=== PATIENT | male | born 1975 | race Caucasian/White ===

== ENCOUNTER → 2019-07-23 | Day surgery (SDC) | payer OTHER ==
[~2019-07-23] MED LIST: Buffered Lidocaine 1% SYRIN* 1 ML/SYRINGE INTRADERM ONE; Bupivacaine 0.5%* 50 ML MDV VIAL ONE; Dexamethasone IV* 4 MG/ML 1 ML (4 MG) IV SLOW PU ONE; Dexamethasone IV* 4 MG/ML 1 ML (4 MG) ONE; DiMENhydriNATE IV* 50 MG/ML VIAL IV PUSH PRN; Famotidine IV* 10 MG/ML 2 ML (20 mg) IV ONE; Famotidine IV* 10 MG/ML 2 ML (20 mg) ONE; HYDROcodone/ACETAMIN 5-325 MG* 1 TAB ONE; HYDROmorphone INJ1* 1 MG/ML SYRINGE IV PRN; KETAMINE HCL* 50 MG/ML 10 ML VIAL ONE; Ketorolac INJ* 30 MG/ML 1 ML VIAL ONE; Lactated Ringers 1000 ML Bag* 1,000 ML IV SCH; Midazolam* 1 MG/ML 2 ML VIAL (2 MG) ONE; Naloxone* 0.4 MG/ML 1 ML VIAL IV PRN; Ondansetron INJ* 2 MG/ML VIAL ONE; Propofol* 10 MG/ML 20 ML BTL ONE; ceFAZolin 2 GM PREMIX in ORs 2 GM/50 ML BAG ONE; ceFAZolin 2 GM in NS PREMIX(*) 0 GM/0 ML BAG IVPB ONE; fentaNYL* 50 MCG/ML 2 ML VIAL (100 MCG VIAL) IV PRN; fentaNYL* 50 MCG/ML 2 ML VIAL (100 MCG VIAL) ONE
[2019-07-23 13:51] VITALS: BP 154/93
--- NOTE | 2019-07-23 22:40 | OP ---
DATE OF OPERATION: 07/23/19 - [facility] DATE OF : 71 SURGEON: Fariba Amezcua MD MEDICAL DEVICE ENGINEER: SHERWIN He ANESTHESIA: General. PRE-OP DIAGNOSIS: Left scaphoid fracture. POST-OP DIAGNOSIS: Left scaphoid fracture. OPERATIVE PROCEDURE: Open reduction and internal fixation of left scaphoid. ESTIMATED BLOOD LOSS: Zero. TOURNIQUET TIME: About 30 minutes. INDICATION FOR PROCEDURE: Tim is a 44-year-old male who suffered a fracture of his left scaphoid when he fell off his son's hoverboard; this occurred about a week and a half ago. X-ray shows a nondisplaced fracture of the scaphoid. We discussed the options of conservative treatment with casting or surgical treatment with open reduction and internal fixation and the patient opted for the surgery. DESCRIPTION OF PROCEDURE: The patient was brought to the operating room and was given a general anesthetic and placed in the supine position on the operating table with the tourniquet around his left upper arm. Skin of his left upper extremity was prepped and draped in the usual sterile fashion. The hand and forearm were exsanguinated and the tourniquet elevated to 250 mmHg. A longitudinal incision was made just ulnar to Wesley's tubercle and we dissected bluntly through the subcutaneous tissue down to the EPL tendon. The wrist joint capsule was incised longitudinally giving us access to the proximal pole of the scaphoid. With the wrist in flexion, the guidewire from the standard size Acutrak screw set was driven through the proximal fragment and into the distal fragment. The position of the guidewire was checked on the C-arm in the AP and lateral views and found to be satisfactory. We measured for a 22 mm screw, overdrilled the guidewire and then placed the screw in the center of the scaphoid. The position of the screw on the AP and lateral views of the C-arm showed good placement. Fracture line was no longer visible. The wound was irrigated with saline. The wrist joint capsule was closed with 2-0 Vicryl suture , extensor retinaculum repaired with 2-0 Vicryl suture and the skin edges were reapproximated with 4-0 nylon suture. The wound was dressed with Xeroform, 4x4 , Webril, and a volar splint. The patient tolerated the procedure well and was brought to the recovery room in good condition. [id number]/[facility] #: [id number] NIC
== END | disposition home or self-care (01) ==
LOC: OR 09:21
PROVIDERS: ATTEND Orthopaedic Surgery
DX: S62.025A Nondisplaced fracture of middle third of navicular [scaphoid] bone of left wrist, initial encounter for closed fracture (principal); V00.138A Other skateboard accident, initial encounter; Y93.89 Activity, other specified; Y92.9 Unspecified place or not applicable; G47.33 Obstructive sleep apnea (adult) (pediatric)
CPT/HCPCS: 76000; C1713; C1769; J0690; J1100; J1885; J2250; J2405; J2704; J3010; J3490